=== PATIENT | female | born 1970 | race Caucasian/White ===

== ENCOUNTER 2019-03-07 09:26 | Day surgery (SDC) | payer OTHER ==
[~2019-03-07] VITALS: Ht 154.9 cm; Wt 71.2 kg
[2019-03-07] MEDS ORDERED: LAM200 PO (09:44)
[2019-03-07] MEDS ORDERED: DIAZ10TA7 PO (09:44)
[2019-03-07] MEDS ORDERED: BUS5 PO (09:44)
[2019-03-07] MEDS ORDERED: QUET200T PO (09:44)
[2019-03-07] MEDS ORDERED: LIDOCAINE 2% 100 MG/5 ML UJET TP ONE (11:45)
[2019-03-07] MEDS ORDERED: fentaNYL 0.05 MG/ML VIAL ONE (11:45)
[2019-03-07] MEDS ORDERED: fentaNYL 0.05 MG/ML VIAL IVP ONE (12:20)
== END 2019-03-07 13:26 | disposition home or self-care (01) ==
LOC: MMU 09:26 → MDS 09:26
PROVIDERS: ATTEND Internal Medicine Gastroenterology
DX: Z12.11 Encounter for screening for malignant neoplasm of colon (principal); G40.909 Epilepsy, unspecified, not intractable, without status epilepticus; F32.9 Major depressive disorder, single episode, unspecified; F41.9 Anxiety disorder, unspecified; Z79.899 Other long term (current) drug therapy
CPT/HCPCS: 45378; J3010